=== PATIENT | male | born 1985 | race Caucasian/White ===

== ENCOUNTER 2024-09-29 12:42 | Emergency (ER) | payer MEDICAID ==
[~2024-09-29] VITALS: Ht 177.8 cm; Wt 118.2 kg
[2024-09-29 12:54] VITALS: TEMP 98
[2024-09-29 13:39] LABS: BASOPHILS # (AUTO) 0.1 X10'3 (0-0.2); BASOPHILS % (AUTO) 0.7 % (0-1); EOSINOPHILS # (AUTO) 0.2 X10'3 (0-0.9); EOSINOPHILS % (AUTO) 1.3 % (0-6); LYMPHOCYTES # (AUTO) 2.1 X10'3 (1.1-4.8); LYMPHOCYTES % (AUTO) 16.3 % (21-51); MEAN CORPUSCULAR HEMOGLOBIN 28.6 PG (27.0-31.0); MEAN CORPUSCULAR HGB CONC 33.1 g/dL (33.0-36.5); MEAN CORPUSCULAR VOLUME 86.2 FL (78-98); MEAN PLATELET VOLUME 7.5 FL (7.4-10.4); MONOCYTES # (AUTO) 0.9 X10'3 (0-0.9); MONOCYTES % (AUTO) 6.7 % (2-12); NEUTROPHILS # (AUTO) 9.6 X10'3 (1.8-7.7); PLATELET COUNT 230 X10'3 (140-440); RED BLOOD COUNT 7.18 X10'6 (4.70-6.10); RED CELL DISTRIBUTION WIDTH 14.2 % (11.5-14.5); WHITE BLOOD COUNT 12.8 X10'3 (4.5-11.0)
[2024-09-29 13:44] LABS: HEMATOCRIT 61.9 % (42.0-52.0); HEMOGLOBIN 20.5 g/dl (14.0-17.9)
[2024-09-29] MEDS: hydrALAZINE 20mg/ml inj. IV ONE ×2 (13:49→15:01)
[2024-09-29] MEDS: labetalol 20mg/4ml (5mg/ml) syringe IV ONE ×2 (13:51→15:01)
[2024-09-29 14:13] LABS: ALBUMIN 3.9 G/DL (3.4-5.0); ANION GAP 9 (8-16); BLOOD UREA NITROGEN 16 MG/DL (7-18); CALCIUM 9.2 MG/DL (8.5-10.1); CHLORIDE 101 MMOL/L (99-107); CREATININE 0.94 MG/DL (0.60-1.10); GLUCOSE 87 MG/DL (70-104); MAGNESIUM 2.1 MG/DL (1.5-2.4); POTASSIUM 4.2 MMOL/L (3.5-5.1); PRO BRAIN NATRIURETIC PEPTIDE 56 PG/ML (0-125); SODIUM 138 MMOL/L (135-145); TOTAL CARBON DIOXIDE 28.1 MMOL/L (24-32); eCRCL 108 ML/MIN; eGFR 89 ML/MIN
[2024-09-29] MEDS ORDERED: HYDR25TA5 PO (14:36)
[2024-09-29] MEDS ORDERED: METO25TA6 PO (14:36)
[2024-09-29] MEDS ORDERED: LISI40TA13 PO (14:36)
[2024-09-29] MEDS: normal saline 1000ml 1,000 ML IV ONE (14:50)
[2024-09-29 16:12] VITALS: BP 160/109; PULSE 96; RESP 18; O2SAT 98
== END 2024-09-29 16:09 | disposition home or self-care (01) ==
LOC: ER 12:43
DX: I16.0 Hypertensive urgency (principal); D75.1 Secondary polycythemia; Z02.89 Encounter for other administrative examinations
CPT/HCPCS: 36415; 71045; 80048; 82668; 83735; 83880; 84484; 85025; 93005; 96361; 96374; 96375; 96376; 99285; J0360; J3490; J7030